=== PATIENT | male | born 1935 | race Caucasian/White ===

== ENCOUNTER → 2019-06-27 09:19 | Outpatient (CLI) | payer MEDICARE, SELFPAY ==
--- NOTE | 2019-06-27 09:33 | XR_ITS ---
PROCEDURE: XR LUMBAR SPINE MIN 4V CLINICAL INDICATION: LOW BACK PAIN COMPARISON: LS5 LUMBAR SPINE 5 VIEWS from 04/01/2013 FINDINGS: There is normal alignment. No fracture or dislocation is evident. Multilevel degenerative disc disease is present from T11-S1. This has shown some progression compared to the previous exam. There are endplate osteophytes at every level with decrease in the disc space and endplate sclerosis. Facet arthritic changes are present at L4-5 and L5-S1. Prostate seed implants are noted. No obvious lytic or blastic lesion. There is a small air sclerosis along the right SI joint superiorly unchanged. IMPRESSION: Moderate to severe multilevel degenerative disc disease which has progressed compared to the previous exam. Facet arthritic changes L4-5 and L5-S1 Dictated by: Alan Early MD 06/27/2019 10:20 Electronically signed by Alan Early MD in [facility] 06/27/2019 10:20
--- NOTE | 2019-06-27 09:33 | XR_ITS ---
PROCEDURE: XR HIP RT 2-3V W/PELVIS CLINICAL INDICATION: RT HIP PAIN COMPARISON: No exams were available for comparison FINDINGS: The there are mild osteoarthritic changes of the right hip. No fracture or dislocation. No lytic or blastic change. Prostate seed implants are noted. There is degenerative disc disease at L4-5 and L5-S1. Mild osteoarthritis is also present vomiting the left hip on the AP view of the pelvis. IMPRESSION: Osteoarthritis of the hips. Degenerative disc disease L4-5 and L5-S1 Dictated by: Alan Early MD 06/27/2019 11:18 Electronically signed by Alan Early MD in [facility] 06/27/2019 11:18
== END ==
PROVIDERS: PCP Internal Medicine Adolescent Medicine; Visit Provider Nurse Practitioner Family
DX: M25.551 Pain in right hip (principal); M54.5 Low back pain
CPT/HCPCS: 72110; 73502

== ENCOUNTER → 2021-09-24 09:44 | Outpatient (CLI) | payer MEDICARE, SELFPAY | PROVIDERS: PCP Internal Medicine Adolescent Medicine; Visit Provider Nurse Practitioner | DX: U07.1 COVID-19 (principal) | CPT/HCPCS: C9803; U0003; U0005 ==

== ENCOUNTER 2021-09-28 09:27 | Outpatient (CLI) | payer MEDICARE, SELFPAY ==
[2021-09-28] VITALS (9 sets, daily range): BP systolic 132–150; BP diastolic 71–97; PULSE 65–78; RESP 14–18; TEMP 36.6; O2SAT 94–98
== END 2021-09-28 12:58 | disposition home or self-care (01) ==
LOC: INF 09:30
PROVIDERS: PCP Nurse Practitioner Family; Visit Provider Nurse Practitioner Family
DX: U07.1 COVID-19 (principal); Z23 Encounter for immunization
CPT/HCPCS: 96365

== ENCOUNTER → 2021-10-04 13:15 | Outpatient (CLI) | payer MEDICARE, SELFPAY ==
--- NOTE | 2021-10-04 13:52 | XR_ITS ---
PROCEDURE: XR CHEST 2V CLINICAL HISTORY: COUGH COMPARISON: No exams were available for comparison FINDINGS: The cardiomediastinal silhouette and pulmonary vascularity are within normal limits. The lungs are clear without infiltrates, suspicious nodules, or pleural effusions. Degenerative changes thoracic spine. Severe osteoarthritic changes of the shoulders right greater than left. IMPRESSION: No acute findings. Dictated by: Alan Early MD 10/04/2021 16:22 Alan Early MD in [facility] 10/04/2021 16:22
[2021-10-04 14:01] LABS: Basophils # 0.1 K/mm3 (0-0.2); Basophils % 0.7 % (0.1-2.0); Eosinophils # 0.2 K/mm3 (0.0-0.4); Eosinophils % 2.7 % (0.1-12.0); Hematocrit 43.6 % (42.0-52.0); Hemoglobin 14.1 g/dL (14.1-18.0); Lymphocytes # 1.9 K/mm3 (0.7-4.5); Lymphocytes % 25.8 % (10-50); Mean Corpuscular HGB Conc 32.4 g/dL (31.8-35.4); Mean Corpuscular Hemoglobin 33.3 pg (27.0-31.2); Mean Platelet Volume 7.9 fl (7.4-10.4); Monocytes # 0.6 K/mm3 (0.1-1.0); Monocytes % 7.8 % (1.7-9.3); Neutrophils # 4.8 K/mm3 (1.8-7.8); Platelet Count 212 K/mm3 (142-424); Red Blood Count 4.23 M/mm3 (4.60-6.20); Red Cell Distribution Width 13.7 % (11.5-17.5); White Blood Count 7.5 K/mm3 (4.8-10.8)
[2021-10-04 15:09] LABS: Alanine Aminotransferase 48 U/L (12-78); Albumin Level 3.5 g/dl (3.5-5.0); Albumin/Globulin Ratio 1.2 (1.1-1.8); Alkaline Phosphatase 98 U/L (38-126); Anion Gap 10.3 mEq/L (5-15); Aspartate Amino Transferase 52 U/L (17-59); Bilirubin,Total 0.4 mg/dl (0.2-1.3); Blood Urea Nitrogen 23 mg/dl (9-20); Calcium 9.2 mg/dl (8.4-10.2); Carbon Dioxide 26 mmol/L (22.0-30.0); Chloride 106 mmol/L (98-107); Estimated Glomerular Filt Rate 80 ml/min (>60); GFR (African American) 97 ML/MIN (>60); Globulin 2.9 g/dL (1.3-3.2); Glucose 100 mg/dl (74-100); Potassium 4.3 mmoL/L (3.5-5.1); Sodium 138 mmol/L (136-145); Total Protein,Serum 6.4 g/dl (6.3-8.2)
== END ==
PROVIDERS: Visit Provider Nurse Practitioner Family
DX: R05.9 Cough, unspecified (principal)
CPT/HCPCS: 36415; 71046; 80053; 85025

== ENCOUNTER 2023-12-04 17:25 | Observation (INO) | payer MEDICARE, SELFPAY ==
[2023-12-04 17:26] VITALS: BP 150/98; PULSE 90; RESP 20; TEMP 36.7; O2SAT 95; BMI 27.3
--- NOTE | 2023-12-04 17:32 | ECG_ITS ---
APPROVED REPORT Exam: Resting ECG HR:88 bpm ECG Measurements Heart Rate 88 AXES DE 171 P 19 QRSd 152 QRS 68 QT 358 T -20 QTc 403 Conclusion SINUS RHYTHM POSSIBLE LEFT ATRIAL ENLARGEMENT [-0.1mV P-WAVE IN V1/V2] RIGHT BUNDLE BRANCH BLOCK [120+ ms QRS DURATION, UPRIGHT V1, 40+ ms S IN I/aVL/V4/V5/V6] ABNORMAL ECG UNCONFIRMED REPORT Electronically signed by : Aldo Delvalle MD 12/05/2023 21:54:50
[2023-12-04 17:43] VITALS: BMI 27.3
--- NOTE | 2023-12-04 17:43 | CT_ITS ---
PROCEDURE INFORMATION: Exam: CT Abdomen And Pelvis With Contrast Exam date and time: 12/04/2023 6:32 PM Age: 87 years old Clinical indication: Abdominal pain; Localized; Left lower quadrant (llq); Additional info: Luq/llq pain. History of prostate cancer TECHNIQUE: Imaging protocol: Computed tomography of the abdomen and pelvis with contrast. Radiation optimization: All CT scans at this facility use at least one of these dose optimization techniques: automated exposure control; mA and/or kV adjustment per patient size (includes targeted exams where dose is matched to clinical indication); or iterative reconstruction. Contrast material: ISOVUE; Contrast volume: 75 ml; Contrast route: IV; COMPARISON: ABDPELW/WO CT ABD PELVIS W/WO CONTRAST 07/06/2017 1:13 PM FINDINGS: Lungs: Mild bilateral lower lobe cylindrical bronchiectasis. Mild subpleural reticulation. Small inferior lingular calcified granuloma. Heart: Moderate aortic valvular calcifications. Minimal pericardial effusion. Coronary arteries: Heavy coronary artery calcifications. Diaphragm: Small hiatal hernia. Liver: Cirrhotic morphology. Gallbladder and bile ducts: Normal. No calcified stones. No ductal dilation. Pancreas: Normal. No ductal dilation. Spleen: No splenomegaly. Adrenal glands: Normal. No mass. Kidneys and ureters: Stable bilateral renal sinus cysts. No hydronephrosis. Stomach and bowel: Mild apparent wall thickening several loops of proximal small bowel and ascending colon. Several mildly dilated loops of distal small bowel containing air-fluid levels measuring up to 3.2 cm in caliber without abrupt transition point. Severe sigmoid colon diverticulosis. Appendix: No evidence of appendicitis. Intraperitoneal space: Gdna-rj-rtnprxpw volume ascites. No free air. Vasculature: Left gastric and esophageal/paraesophageal varices. Moderate to heavy atherosclerosis No abdominal aortic aneurysm. Lymph nodes: Small calcified left hilar and subcarinal lymph nodes. No enlarged lymph nodes. Urinary bladder: Unremarkable as visualized. Reproductive: Prostate brachytherapy seeds Bones/joints: Degenerative changes. No acute fracture. Soft tissues: Small bilateral fat containing inguinal hernias. Moderate lower back subcutaneous soft tissue swelling IMPRESSION: 1. Cirrhotic morphology of the liver. Secondary findings of portal hypertension to include left gastric and esophageal/paraesophageal varices. Feoi-pj-peawlqwn volume ascites. 2. 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 3. Several mildly dilated loops of small bowel containing air-fluid levels without evidence of mechanical obstruction, possibly related to ileus or enteritis.
--- NOTE | 2023-12-04 17:44 | ED_ITS ---
Discharge Plan Disposition Chief Complaint: Abdominal Pain Referrals Follow up/Referrals: Aldo Delvalle MD [Primary Care Provider] - See instructions Clinical Impressions Clinical Impression: Cirrhosis, Esophageal varices, Spontaneous bacterial peritonitis Discharge ED Provider: Jann Dykes General Adult HPI General Chief complaint: Abdominal Pain Stated complaint: chest pain Time Seen by Provider: 12/04/23 17:35 History of Present Illness HPI narrative: Patient is a 87-year-old male with past medical history of prostate cancer status postsurgical intervention, largely healthy otherwise who presents emerge ncy department from clinic for evaluation of abdominal pain. History is obtained by patient and family at bedside. Over the last week patient has had upper respiratory symptoms including cough and rhinorrhea which are improving, denies chest pain. He has had intermittent severe left upper quadrant left lower quadrant abdominal pain causing him to present here for continued evaluation. Last bowel movement prior to arrival, streaky blood with wiping however no overt melena or hematochezia is reported. Patient is pending outpatient echocardiography for bilateral lower extremity swelling. No other acute complaints at this time. Related Data Allergies Allergy/AdvReac Type Severity Reaction Status Date / Time No Known Drug Allergies Allergy Unknown Verified 09/28/21 11:02 [NO KNOWN DRUG ALLERGIES] [facility] Disclaimer: The information contained in this section may have been updated after the patient was seen, as this information can be updated by other users. Social History Smoking Status: Never smoker alcohol intake: never current occupational status: other Travel in the last 8 weeks: None ROS Obtained: Yes Systems reviewed as appropriate & no additional complaints except as documented Physical Exam General General appearance: alert and in no apparent distress Head Head exam: atraumatic and normocephalic Eye Eye exam: Present PERRL ENT ENT exam: Present mucous membranes moist Neck Neck exam: Present normal inspection Chest Chest inspection: Present normal inspection and symmetric chest wall rise Respiratory Respiratory exam: Present normal lung sounds bilaterally; Absent respiratory distress Cardiovascular Cardiovascular exam: Present regular rate and normal rhythm Abdominal Exam Abdominal exam: Present distention (Mild) and tenderness (Tenderness over the left upper quadrant left lower quadrant.); Absent rebound or rigidity Extremities Exam Extremities exam: Present normal inspection and other (Pitting edema bilateral lower extremities.) Neurological Exam Neurological exam: Present alert Psychiatric Psychiatric exam: Present normal affect Skin Skin exam: Present warm and dry Medical Decision Making George Inquiry Pt receiving controlled substance: No Vital Signs: 12/04/23 17:26 12/04/23 18:00 Temperature 98.1 F Temperature Source Oral Pulse Rate 92 H Pulse Rate [Left] 90 Respiratory Rate 20 18 Blood Pressure 153/92 H Blood Pressure [Right Arm] 150/98 H Blood Pressure Mean 112 Blood Pressure Mean [Right Arm] 115 Blood Pressure Source [Right Arm] Automatic Cuff 02 Sat by Pulse Oximetry 95 96 Oxygen Delivery Method Room Air Lab Data Lab Results 12/04/23 17:30: WBC 7.3, RBC 3.78 L, Hgb 13.2 L, Hct 39.0 L, MCV 103.2 H, MCH 35.0 H, MCHC 33.9, RDW 14.3, Plt Count 181, MPV 8.6, Neut % (Auto) 71.4, Lymph % (Auto) 18.9, [place] % (Auto) 7.3, Eos % (Auto) 2.1, Baso % (Auto) 0.3, Neut # (Auto) 5.2, Lymph # (Auto) 1.4, [place] # (Auto) 0.5, Eos # (Auto) 0.2, Baso # ( Auto) 0.0, Sodium 139, Potassium 3.9, Chloride 107, Carbon Dioxide 26, Anion Gap 9.9, BUN 24 H, Creatinine 0.90, Estimated Creat Clear 61, Estimated GFR 80, Est GFR ( Amer) 96, Glucose 107 H, Calcium 8.5, Total Bilirubin 1.2, AST 79 H , ALT 56, Alkaline Phosphatase 174 H, Troponin I < 0.01, Total Protein 6.4, Albumin 3.2 L, Globulin 3.2, Albumin/Globulin Ratio 1.0 L, Lipase 134 12/04/23 18:24: SARS-CoV-2 (PCR) Detected A, Influenza A Untype (PCR) Not detected, Influenza Type B (PCR) Not detected 12/04/23 19:28: Fluid Source Paracentesis fluid, Fluid Volume 40, Fluid Appearance Cloudy, Fluid RBC (Auto) < 10, Fld Tot Nucleated Cell 390 12/04/23 17:30 12/04/23 17:30 Orders (Tests/Meds): ED MEDICATIONS Generic Name Dose Route Start Last Admin Trade Name Freq PRN Reason Stop Dose Admin Ceftriaxone Sodium 2 gm/ 100 mls @ 200 mls/hr 12/04/23 20:00 12/04/23 19:51 Sodium Chloride IV 12/14/23 19:59 200 mls/hr Q24H PATIENCE Administration Sodium Chloride 10 ml 12/04/23 18:33 12/04/23 18:35 Sodium Chloride 0.9% 10ml Syr (Rad Only) IV 01/03/24 18:32 10 ml NEEDED PRN Administration Maintain IV Site Discontinued Medications Generic Name Dose Route Start Last Admin Trade Name Danis PRN Reason Stop Dose Admin Acetaminophen 1,000 mg 12/04/23 17:43 12/04/23 17:58 Acetaminophen 1,000mg/100ml Vial IV 12/04/23 17:44 1,000 mg ONCE ONE Administration Iopamidol 75 ml 12/04/23 18:33 12/04/23 18:35 Iopamidol-370 (76%);100ml Bottle IV 12/04/23 18:34 75 ml ONCE ONE Administration ORDERS Category Date Time Status CT abdomen pelvis w con Stat Cat Scan 12/04/23 17:43 Completed POCUS Point of Care (ER Only) Stat Exams 12/04/23 17:44 Taken Body Fluid: Cell Count w/ Diff Stat Lab 12/04/23 19:28 Results CBC w/Auto Diff [Complete Blood Count Auto Diff] Stat Lab 12/04/23 17:30 Completed CMP [Comprehensive Metabolic Panel] Stat Lab 12/04/23 17:30 Completed Lactic Acid Stat Lab 12/04/23 17:43 Ordered Lipase Stat Lab 12/04/23 17:30 Completed Rapid PCR Covid and Flu A/B Stat Lab 12/04/23 18:24 Completed Trop I [Troponin I] Stat Lab 12/04/23 17:30 Completed UA [Urinalysis and Microscopic] Stat Lab 12/04/23 18:24 Ordered Body Fluid Cult & Gram Stain Stat Micro 12/04/23 19:28 Received Body Fluid Culture, Sterile Stat Micro 12/04/23 19:28 Received ECG Data Tracing #1: Independently interpreted by me, rate is 88, rhythm is regular, axis is normal, right bundle branch block, no significant ST elevation in anatomical contiguous leads. HEART Score History (anamnesis): Slightly suspicious ECG: Non-specific disturbance Age: >65 years Risk factors: No known risk factors Troponin: </= normal limit HEART Score: 3 Medical Decision Narrative: In summary patient is 87-year-old male past medical history described above presents emergency department for evaluation of abdominal pain. Patient is hemodynamically stable nontoxic-appearing upon arrival, afebrile, significantly tender in the left upper quadrant. Differential diagnosis includes diverticulitis, mass, pancreatitis, atypical ACS, among others. Workup will be conducted with hematologic labs, urinalysis, EKG, troponin, CT abdomen pelvis IV contrast. Initial inventions include IV Tylenol. Crystalloid resuscitation was considered but will be deferred given that patient is volume up extra vascularly and has appropriate capillary refill. Initial workup reviewed by me, hematologic labs are nonactionable, no specific leukocytosis, no MARY or critical electrolyte abnormality. Initial troponin below detectable limit, there is mild elevation of AST which is nonactionable. Patient is COVID-positive, no significant respiratory symptoms. CT abdomen pelvis shows cirrhosis of the liver, portal hypertension with esophageal varices and moderate volume ascites, thickening of several loops of proximal small bowel and ascending colon likely relative to portal hypertensive Enterocolopathy with several mildly dilated loops of small bowel containing air-fluid levels without evidence of obstruction. Upon further questioning with family at bedside patient has had abdominal swelling over the last week which may be new onset ascites in the setting of worsening portal hypertension. Given that patient is tender spontaneous bacterial peritonitis is on the differential for which patient underwent diagnostic paracentesis. Nucleated cell count 390 concerning for spontaneous bacterial peritonitis. Given high morbidity mortality associated with this condition and patient management is warranted at this time. Patient does not have decompensated cirrhosis to the point where emergent gastroenterology evaluation is warranted. 2 g ceftriaxone were administered and the case was discussed with hospital medicine regarding management patient will be admitted to their service for continued evaluation at this time. Procedure: Procedure performed was diagnostic paracentesis. Procedure performed by Jann Dykes. Using ultrasound a fluid pocket greater than 5 cm was identified in the patient's right lower quadrant, anatomy was marked (images were not saved to permanent archive therefore ultrasound is not warranted). Skin was cleaned with alcohol prep and patient underwent numbing with lidocaine 1% approximately 7 cc. ChloraPrep was applied and 2 aliquots of straw-colored ascitic fluid were removed, total approximately 30 cc which will placed in the specimen container. Band-Aid applied. Patient tolerated the procedure well. There were no immediate complications. Procedures Miscellaneous Procedure Procedure Performed: Indication: Swelling Identified cardiac views: Cardiac parasternal long axis, apical four-chamber Findings: Cardiac activity present, gross wall and wall motion normal, no significantly decreased ejection fraction, normal EPSS, no large pericardial effusion Impression: From above Images were to permanent archive The study was technically adequate CPT: 85801 This study was performed by me, and I personally interpreted all images/videos. Based on my clinical judgement, these images were [adequate/inadequate] and [did/did not] necessitate further imaging. Critical Care Critical Care Time Critical Care Time: No
[2023-12-04] MEDS: ACETAMINOPHEN 1,000MG/100ML VIAL 1000 MG IV (17:58)
[2023-12-04 18:00] VITALS: BP 153/92; PULSE 92; RESP 18; O2SAT 96
[2023-12-04 18:11] LABS: Basophils % 0.3 % (0.1-2.0); Eosinophils # 0.2 K/mm3 (0.0-0.4); Eosinophils % 2.1 % (0.1-12.0); Hemoglobin 13.2 g/dL (14.1-18.0); Lymphocytes # 1.4 K/mm3 (0.7-4.5); Lymphocytes % 18.9 % (10-50); Mean Corpuscular HGB Conc 33.9 g/dL (31.8-35.4); Mean Corpuscular Volume 103.2 fl (80-94); Mean Platelet Volume 8.6 fl (7.4-10.4); Monocytes # 0.5 K/mm3 (0.1-1.0); Monocytes % 7.3 % (1.7-9.3); Neutrophils # 5.2 K/mm3 (1.8-7.8); Neutrophils % 71.4 % (37.0-80.0); Platelet Count 181 K/mm3 (142-424); Red Blood Count 3.78 M/mm3 (4.60-6.20); Red Cell Distribution Width 14.3 % (11.5-17.5); White Blood Count 7.3 K/mm3 (4.8-10.8)
[2023-12-04 18:21] LABS: Alanine Aminotransferase 56 U/L (12-78); Albumin Level 3.2 g/dl (3.5-5.0); Alkaline Phosphatase 174 U/L (38-126); Anion Gap 9.9 mEq/L (5-15); Aspartate Amino Transferase 79 U/L (17-59); Bilirubin,Total 1.2 mg/dl (0.2-1.3); Blood Urea Nitrogen 24 mg/dl (9-20); Calcium 8.5 mg/dl (8.4-10.2); Carbon Dioxide 26 mmol/L (22.0-30.0); Chloride 107 mmol/L (98-107); Creatinine Clearance Estimated 61 mL/min (50-200); Estimated Glomerular Filt Rate 80 ml/min (>60); GFR (African American) 96 ML/MIN (>60); Globulin 3.2 g/dL (1.3-3.2); Glucose 107 mg/dl (74-100); Lipase 134 U/L (23-300); Potassium 3.9 mmoL/L (3.5-5.1); Sodium 139 mmol/L (136-145); Total Protein,Serum 6.4 g/dl (6.3-8.2)
[2023-12-04 18:31] LABS: Influenza A, PCR Not Detected (NotDetected); Influenza B, PCR Not Detected (NotDetected)
[2023-12-04 18:34] LABS: Troponin I < 0.01 ng/ml (0.00-0.034)
[2023-12-04] MEDS: SODIUM CHLORIDE 0.9% 10ML SYR (RAD ONLY) 10 ML IV (18:35)
[2023-12-04] MEDS: IOPAMIDOL-370 (76%);100ML BOTTLE 75 ML IV (18:35)
[2023-12-04 19:11] LABS: Coronavirus 19, PCR Detected (NotDetected)
[2023-12-04 19:34] LABS: Source, Body Fld. Paracentesis Fluid
[2023-12-04 19:35] LABS: Appearance,Body Fld. Cloudy
[2023-12-04 19:38] LABS: Volume,Body Fld. 40 mL
[2023-12-04 19:43] LABS: RBC,Body Fluid < 10 cells/uL (< 10 X 10^3); TNC,Body Fluid 390 cells/uL (< 1000)
[2023-12-04] MEDS: CEFTRIAXONE SODIUM 2 GM in 0.9 % SODIUM CHLORIDE 100 ML IV (19:51)
[2023-12-04 19:59] LABS: Microscopic, Urine URINE MICROSCOPIC (MICROSCOPIC)
--- NOTE | 2023-12-04 19:59 | P.HP_ITS ---
History of Present Illness *Admission Date: 12/04/23 *Reason for visit:: Abd pain *History of present illness: This is a 87-year-old male with PMHx of prostate cancer status postsurgical intervention, OA and largely healthy otherwise who presents emergency department from clinic for evaluation of abdominal pain. History is obtained by patient and daughter at bedside. Over the last week patient has had upper respiratory symptoms including cough and rhinorrhea which are improving, denies chest pain. He also has had intermittent severe left upper quadrant left lower quadrant abdominal pain causing him to present here for continued evaluation. Per patient, he is been feeling abdominal distention at least from about the last six months. He blamed on been hypoactive and thought it was getting obese, my pants are no longer fit me . Last bowel movement prior to arrival, streaky bl ood with wiping however no overt melena or hematochezia is reported. Patient is pending outpatient echocardiography for bilateral lower extremity swelling. No other acute complaints at this time. Admitted for management and treatment. [facility] Disclaimer: The information contained in this section may have been updated after the patient was seen, as this information can be updated by other users. Medical History (Updated 12/05/23 @ 02:34 by Patrick Stovall APRN) Degenerative arthritis Prostate cancer Social History (Updated 12/04/23 @ 22:01 by Linda Martin RN) Smoking Status: Never smoker alcohol intake: never current occupational status: other Travel in the last 8 weeks: None Review of Systems Review of Systems Review of systems:: pertinent systems reviewed and negative unless documented below Meds Home Medications and Allergies Home Medications Medication Instructions Recorded Confirmed Type aspirin 325 mg tablet 325 mg PO DAILY PRN Pain (Scale 12/04/23 12/04/23 History Score 1-3) diclofenac sodium 75 mg 75 mg PO BID PRN arthritis pain 12/04/23 12/04/23 History tablet,delayed release famotidine 20 mg tablet 20 mg PO DAILY PRN indegestion 12/04/23 12/04/23 History New Prescriptions to Start Prescriptions: Allergies Allergy/AdvReac Type Severity Reaction Status Date / Time No Known Drug Allergies Allergy Unknown Verified 09/28/21 11:02 [NO KNOWN DRUG ALLERGIES] Exam Data for Last 24 hours Vital signs and Labs for Last 24 Hours: Temp Pulse Resp BP Pulse Ox O2 Del Method 98.1 F 92 H 18 153/92 H 96 Room Air 12/04/23 17:26 12/04/23 18:00 12/04/23 18:00 12/04/23 18:00 12/04/23 18:00 12/04/23 17:26 Laboratory Results - last 24 hr 12/04/23 17:30: WBC 7.3, RBC 3.78 L, Hgb 13.2 L, Hct 39.0 L, MCV 103.2 H, MCH 35.0 H, MCHC 33.9, RDW 14.3, Plt Count 181, MPV 8.6, Neut % (Auto) 71.4, Lymph % (Auto) 18.9, [place] % (Auto) 7.3, Eos % (Auto) 2.1, Baso % (Auto) 0.3, Neut # (Auto) 5.2, Lymph # (Auto) 1.4, [place] # (Auto) 0.5, Eos # (Auto) 0.2, Baso # (Auto) 0.0, Sodium 139, Potassium 3.9, Chloride 107, Carbon Dioxide 26, Anion Gap 9.9, BUN 24 H, Creatinine 0.90, Estimated Creat Clear 61, Estimated GFR 80, Est GFR ( Amer) 96, Glucose 107 H, Calcium 8.5, Total Bilirubin 1.2, AST 79 H, ALT 56, Alkaline Phosphatase 174 H, Troponin I < 0.01, Total Protein 6.4, Albumin 3.2 L, Globulin 3.2, Albumin/Globulin Ratio 1.0 L, Lipase 134 12/04/23 18:24: SARS-CoV-2 (PCR) Detected A, Influenza A Untype (PCR) Not detected, Influenza Type B (PCR) Not detected 12/04/23 19:28: Fluid Source Paracentesis fluid, Fluid Volume 40, Fluid Appearance Cloudy, Fluid RBC (Auto) < 10, Fld Tot Nucleated Cell 390 I & O for Last 24 hours: Intake & Output 12/01/23 12/02/23 12/03/23 12/04/23 23:59 23:59 23:59 23:59 Weight 83.915 kg Constitutional Constitutional: mild distress and cooperative *Routine HEENT Exam Head: Present normocephalic and atraumatic Eye: Present EOMI, PERRL and normal accommodation ENT: Present mucous membranes moist *Routine Neck Exam Neck: Present supple, full ROM and trachea midline *Routine Respiratory Exam Respiratory: Present CTA bilaterally, normal respiratory effort and symmetric chest movement; Absent respiratory distress *Routine Cardiovascular Exam Cardiovascular: Present RRR, Normal S1 and Normal S2 *Routine Abdominal Exam Abdominal: Present normoactive bowel sounds, distended, firm and organomegaly *Routine Rectal Exam Rectal:: deferred *Routine Genitalia Exam Genitalia:: deferred *Routine Extremities Exam Extremities: Present edema, full ROM and pulses intact; Absent cyanosis or clubbing Comments: 2+ bilateral lower pitting edema. greater on right side *Routine Skin Exam Skin: Present intact, dry and warm *Routine Neurological Exam Neurological: Present alert, oriented X3, sensory deficit, moving all extremities and normal speech; Absent hearing grossly intact Comments: bilateral [place] Routine Psychiatric Exam Psychiatric: Present normal thought process, cooperative and good judgment H&P: Result Imaging and Cardiology CT scan - abdomen: Status: image reviewed by me, Preliminary report and final report EKG: Status: image reviewed by me and Preliminary report Assessment and Plan *Assessment and plan (1) Cirrhosis: Status: Acute Qualifiers: Ascites presence: with ascites Hepatic cirrhosis type: unspecified hepatic cirrhosis Qualified Code(s): K74.60 - Unspecified cirrhosis of liver; R18.8 - Other ascites Category: Medical Code(s): K74.60 - Unspecified cirrhosis of liver (2) Spontaneous bacterial peritonitis: Status: Acute Category: Medical Code(s): K65.2 - Spontaneous bacterial peritonitis (3) Esophageal varices: Status: Acute Qualifiers: Esophageal varices bleeding: without bleeding Esophageal varices type: unspecified type Qualified Code(s): I85.00 - Esophageal varices without bleeding Category: Medical Code(s): I85.00 - Esophageal varices without bleeding (4) COVID-19: Status: Acute Category: Medical Code(s): U07.1 - COVID-19 Plan 87-year-old male with PMHx of prostate cancer status postsurgical intervention, OA and largely healthy otherwise who presents emergency department from clinic for evaluation of abdominal pain. He also has had intermittent severe left upper quadrant left lower quadrant abdominal pain causing him to present here for continued evaluation. Per patient, he is been feeling abdominal distention at least from about the last six months. He blamed on been hypoactive and thought it was getting obese, my pants are no longer fit me .. On arrival patient had a CT of his abdomen conclusis for cirrhotic changes of the liver portal hypertention pre and post hepatic, esophageal varices. and moderate volume ascites, thickening of several loops of proximal small bowel and ascending colon likely relative to portal hypertensive Enterocolopathy with several mildly dilated loops of small bowel containing air-fluid levels without evidence of obstruction.Patient denied history of alcoholism or any other drugs, denied history of hepatitis. LAbs are grossly unremarkable. mild anemia. Given patient symptoms, spontaneous bacterial peritonitis is on the differential for which patient underwent diagnostic paracentesis. Nucleated cell count 390 concerning for spontaneous bacterial peritonitis. Findings discussed with ER provider for admission. Plan as follow: -Cirrhosis: Unclear etiology. Patient denies history of alcoholism, hepatitis, or chronic use of medications like methotrexate for OA: Admit patient for medical services. Patient MedSurg Diagnosis paracentesis was performed at the ER. Culture pending CT of the abdomen was done. Imaging reviewed. Ultrasound of the liver ordered. Echocardiogram to assess right heart failure. Hepatitis B and C antigen Monitor for sepsis. Vital signs per unit. Patient hemodynamically stable -Spontaneous bacterial peritonitis: Paracentesis shows elevated neutrophils. Started on Rocephin 2 g every 24h Awaiting culture results Monitor CBC CMP daily. 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 Continue monitor -COVID-19 positive Asymptomatic Lovenox for DVT prophylaxis. Protonix and famotidine for GERD and GI bleed protection Patient would like to be DNR. Plan discussed with daughter at bedside. Family are leaning to not pursue aggressive or invasive procedure. And advised to follow-up with GI as an outpatient after medically stable. Rounded on patient after nurse practitioner. Personally examined and interviewed patient. Agree with exam findings and care plan as documented.
[2023-12-04 20:03] LABS: Appearance,Urine CLEAR (Clear); Bilirubin,Urine Negative (Negative); Blood, Urine Negative (Negative); Color,Urine YELLOW (Yellow); Glucose,Urine (UA) Negative (Negative); Ketones,Urine TRACE (Negative); Leukocyte Esterase,Urine Negative (Negative); Nitrate,Urine Negative (Negative); Protein,Urine Negative (Negative); Specific Gravity, Urine 1.025 (1.005-1.030)
--- NOTE | 2023-12-04 20:21 | PC.NURSE ---
Admitting notified for OBS admission to Dr. Dash for SBP. Room 205
[2023-12-04 20:24] LABS: WBC,Urine Occasional #/hpf (0-3)
[2023-12-04 20:25] LABS: Squamous Epithelial Cell,Urine Occasional #/hpf (0-5)
[2023-12-04 20:28] LABS: Mononuclear WBCs,Body Fluid 90 %; Polynuclear WBC,Body Fluid 10 %
--- NOTE | 2023-12-04 20:34 | PC.NURSE ---
Attempted to give report to second floor, RN to call back to receive report.
--- NOTE | 2023-12-04 20:46 | PC.NURSE ---
Report given to SIRIA Mckeon on second floor.
[2023-12-04 20:53] VITALS: BP 150/81; PULSE 69; RESP 20; TEMP 36.7; O2SAT 95
[2023-12-04 21:00] VITALS: BP 150/68; PULSE 83; RESP 16; TEMP 36.8; O2SAT 97; BMI 27.1
[2023-12-04] MEDS: 0.9 % SODIUM CHLORIDE 1000ML 1,000 ML 50 ML IV (21:19)
[2023-12-04] MEDS: ENOXAPARIN 40MG/0.4ML SYRINGE 40 MG SQ (21:19)
[2023-12-04 23:12] LABS: Lactic Acid 1.1 mmol/L (0.7-2.1)
[2023-12-05] VITALS (17 sets, daily range): BP systolic 117–159; BP diastolic 63–93; PULSE 71–84; RESP 16–19; TEMP 36.6–37.7; O2SAT 94–98; BMI 27.1
--- NOTE | 2023-12-05 04:50 | PC.NURSE ---
Pt and family state he started feeling bad last Monday with malaise, headache, body ache, congestion. Pt then started complaining of abdominal pain on Monday and it has progressively got worse. Pt went to MD office today and was told to come to ER. Pt received thorocentesis in ER, fluid sent for cx. Pt abdomen remains very distended and round. Pt states he is not in any pain. Pt has continued to tolerate RA with sats >90% Other VSS. Pt does have 2 + edema to BLE. Pt able to use urinal independently and ambulates with 1x assist. Daughter is at bedside. Call light within reach.
--- NOTE | 2023-12-05 06:00 | US_ITS ---
FINAL REPORT CLINICAL HISTORY: Ascitis. COMPARISON: None FINDINGS: ULTRASOUND ABDOMEN: A limited ultrasound examination of the abdomen was performed to evaluate presence of ascites. There is ascites present in all 4 quadrants of the abdomen, with the greatest amount of ascites present in the right upper quadrant. IMPRESSION: Ascites present in all 4 quadrants of the abdomen, with greatest amount present in the right upper quadrant. Reviewed, Interpreted and Dictated by Tera Juan III, MD Transcribed by Marcela Shaikh Authenticated and [facility]
--- NOTE | 2023-12-05 06:04 | CA_ITS ---
APPROVED REPORT EXAM: Comprehensive 2D, Doppler, and color-flow Echocardiogram Vp Public Relations: OSBALDO Guevara, RVS Ht: 5 ft 8 in Wt: 189lbs BSA: 1.99 BP: 153/92 mmHg Indications: Pedal Edema, Cirrhosis with ascites, Covid+, Spontaneous bacterial peritonitis, Hgb13.2 2D Dimensions Left Atrium 3.96 cm M: 3.0 - 4.0 LA Volume 65.40 mL LA Volume Index [id number] mL/m2 (M/F) 16-34 M-Mode Dimensions RVDd 1.82 cm (0.9-2.6) LA Diam 4.20 cm (1.9-4.0) LVDd 5.78 cm (3.5-5.7) LVDs 3.50 cm (3.5-5.7) IVSd 0.82 cm (0.6-1.1) PWd 1.00 cm (0.6-1.1) EF (Teich) 69.20% EPSs 0.25 cm FS 39.40% EDV (Teich) 165.20 mL TAPSE 1.70 (<1.7) ESV (Teich) 50.90 mL LV Diastology E Decel Time 133 (160-240 msec) E/A Ratio 0.91 MED A' 9.90 cm/s LAT A' 10.80 cm/s Aortic Valve GEOFF Index 0.70 cm2/m2 AoV Peak Hussein. 196.0 (50-130 cm/s) AO Peak GR. 15.30 mmHg AO Mean GR. 7.30 (<5 mmHg) AO VTI 36.4 (18-25 cm) GEOFF (VTI) 1.42 (2.5-4.5 cm2) Mitral Valve MV A Velocity 77.0 (40-130 cm/s) E/A Ratio 0.91 MV Mean Gr. 1.10 (<2mmHg) Pulmonary Valve PV Peak Velocity 106.0 (50-150 cm/s) NM End VMAX 181.0 cm/s Tricuspid Valve TR P. Velocity 198.00 cm/s RAP Estimate 10.00 mmHg RVSP 25.70 mmHg Left Ventricle The left ventricle is normal size. The left ventricular systolic function is normal. The left ventricular ejection fraction is within the normal range. There is increased LV wall thickness. There is normal LV segmental wall motion. The left ventricular diastolic function is normal. LVEF is 55%. Right Ventricle The right ventricle is normal size. The right ventricular systolic function is normal. Atria The left atrium size is normal. The right atrium size is normal. The interatrial septum is not well-visualized. Aortic Valve The aortic valve is mildly thickened. The aortic valve is trileaflet. There is no aortic valvular stenosis. Trace aortic regurgitation. Mitral Valve The mitral valve leaflets are mildly thickened. No evidence of mitral valve stenosis. Trace mitral regurgitation. Tricuspid Valve The tricuspid valve leaflets are thin and pliable. Mild tricuspid regurgitation. RVSP is 25-30 mmHg. Pulmonic Valve The pulmonary valve is normal in structure. Mild pulmonic regurgitation. Great Vessels The aortic root is normal in size. The ascending aorta is normal in size. The IVC is not well-visualized. Pericardium There is no pericardial effusion. Other Information Study Quality: Fair Conclusion Normal biventricular systolic function. Mild TR, mild PI. Electronically signed by : Aurelia Jean-Baptiste MD 12/06/2023 12:03:12
[2023-12-05 06:49] LABS: Basophils % 0.2 % (0.1-2.0); Eosinophils # 0.1 K/mm3 (0.0-0.4); Eosinophils % 1.2 % (0.1-12.0); Hemoglobin 12.4 g/dL (14.1-18.0); Lymphocytes # 1.2 K/mm3 (0.7-4.5); Lymphocytes % 15.2 % (10-50); Mean Corpuscular HGB Conc 33.6 g/dL (31.8-35.4); Mean Corpuscular Hemoglobin 34.5 pg (27.0-31.2); Mean Corpuscular Volume 102.7 fl (80-94); Mean Platelet Volume 9.4 fl (7.4-10.4); Monocytes # 0.5 K/mm3 (0.1-1.0); Monocytes % 6.3 % (1.7-9.3); Neutrophils # 6.2 K/mm3 (1.8-7.8); Neutrophils % 77.1 % (37.0-80.0); Platelet Count 167 K/mm3 (142-424); Red Cell Distribution Width 14.4 % (11.5-17.5)
[2023-12-05 06:59] LABS: Chloride 112 mmol/L (98-107); Potassium 4.1 mmoL/L (3.5-5.1); Sodium 135 mmol/L (136-145)
[2023-12-05 07:02] LABS: Alanine Aminotransferase 48 U/L (12-78); Albumin Level 2.7 g/dl (3.5-5.0); Albumin/Globulin Ratio 0.9 (1.1-1.8); Alkaline Phosphatase 156 U/L (38-126); Anion Gap 6.1 mEq/L (5-15); Aspartate Amino Transferase 73 U/L (17-59); Bilirubin,Total 1.1 mg/dl (0.2-1.3); Blood Urea Nitrogen 22 mg/dl (9-20); Calcium 7.8 mg/dl (8.4-10.2); Carbon Dioxide 21 mmol/L (22.0-30.0); Creatinine Clearance Estimated 60 mL/min (50-200); Estimated Glomerular Filt Rate 91 ml/min (>60); GFR (African American) 110 ML/MIN (>60); Glucose 95 mg/dl (74-100); Total Protein,Serum 5.7 g/dl (6.3-8.2)
[2023-12-05 07:15] LABS: INR 1.15 (0.9-1.1); Prothrombin Time 12.3 seconds (10.1-12.5)
--- NOTE | 2023-12-05 07:28 | HMH.PHAINT1 ---
Pharmacy Intervention Comments: Reviewed medication list comparing to external fill history
[2023-12-05 07:46] LABS: NT Pro Brain Natriuretic Pep. 72.2 pg/mL (0-450)
[2023-12-05] MEDS: PANTOPRAZOLE 40MG TABLET 40 MG PO (09:39)
--- NOTE | 2023-12-05 11:37 | EXP.ACUTE.PN ---
Subjective *Date: 12/05/23 *Time: 21:58 Interval history: Patient remained afebrile. Having abdominal pain and distention still. No nausea or vomiting. No fever. Most comfortable laying on his back but no discomfort when the bed shakes. Complaining of some left lower abdominal pain. Poor p.o. intake as he is just not hungry. Alert and oriented x 3 but hard of hearing. Medical Exam Vital signs and Labs for Last 24 Hours: Vital Signs Temp Pulse Pulse Resp BP BP Pulse Ox 12/05/23 11:31 12/05/23 11:13 98.9 F 77 18 152/79 H 96 12/05/23 09:30 12/05/23 08:02 12/05/23 08:00 97.9 F 84 19 128/91 H 96 12/05/23 06:55 12/05/23 04:00 97.8 F 77 18 145/71 H 96 12/05/23 04:44 12/05/23 02:54 12/05/23 01:00 12/05/23 00:00 99.8 F H 74 18 141/79 H 94 L 12/04/23 22:47 12/04/23 22:17 12/04/23 21:00 12/04/23 21:00 98.3 F 83 16 150/68 H 97 12/04/23 20:53 98.0 F 69 20 150/81 H 12/04/23 18:00 92 H 18 153/92 H 96 12/04/23 17:26 98.1 F 90 20 150/98 H 95 O2 Del Method 12/05/23 11:31 Room Air 12/05/23 11:13 Room Air 12/05/23 09:30 Room Air 12/05/23 08:02 Room Air 12/05/23 08:00 Room Air 12/05/23 06:55 Room Air 12/05/23 04:00 Room Air 12/05/23 04:44 Room Air 12/05/23 02:54 Room Air 12/05/23 01:00 Room Air 12/05/23 00:00 Room Air 12/04/23 22:47 Room Air 12/04/23 22:17 Room Air 12/04/23 21:00 Room Air 12/04/23 21:00 Room Air 12/04/23 20:53 Room Air 12/04/23 18:00 12/04/23 17:26 Room Air Intake and Output 12/04/23 12/05/23 12/05/23 23:59 07:59 15:59 Intake Total 356 / 356 0 / 356 Output Total 250 / 450 200 / 450 Balance 106 / -94 -200 / -94 Intake: Intake, Oral Amount 0 / 0 Intake, Total IV Amount 356 / 356 0.9 % Sodium Chloride 1000ML 1, 356 / 356 000 ml @ 50 mls/hr IV .Q20H [facility] Rx#:[id number] Output: Output, Urine Amount 250 / 450 200 / 450 Other: Number of Unmeasured Voids 0 Weight 83.325 kg 83.325 kg Patient Weight 12/05/23 23:59 Weight 83.325 kg Laboratory Results - last 24 hr 12/04/23 17:30: WBC 7.3, RBC 3.78 L, Hgb 13.2 L, Hct 39.0 L, MCV 103.2 H, MCH 35.0 H, MCHC 33.9, RDW 14.3, Plt Count 181, MPV 8.6, Neut % (Auto) 71.4, Lymph % (Auto) 18.9, [place] % (Auto) 7.3, Eos % (Auto) 2.1, Baso % (Auto) 0.3, Neut # (Auto) 5.2, Lymph # (Auto) 1.4, [place] # (Auto) 0.5, Eos # (Auto) 0.2, Baso # (Auto) 0.0, Sodium 139, Potassium 3.9, Chloride 107, Carbon Dioxide 26, Anion Gap 9.9, BUN 24 H, Creatinine 0.90, Estimated Creat Clear 61, Estimated GFR 80, Est GFR ( Amer) 96, Glucose 107 H, Calcium 8.5, Total Bilirubin 1.2, AST 79 H, ALT 56, Alkaline Phosphatase 174 H, Troponin I < 0.01, Total Protein 6.4, Albumin 3.2 L, Globulin 3.2, Albumin/Globulin Ratio 1.0 L, Lipase 134 12/04/23 18:24: SARS-CoV-2 (PCR) Detected A, Influenza A Untype (PCR) Not detected, Influenza Type B (PCR) Not detected 12/04/23 19:28: Fluid Source Paracentesis fluid, Fluid Volume 40, Fluid Appearance Cloudy, Fluid RBC (Auto) < 10, Fld Tot Nucleated Cell 390, Fld Polynuclear WBCs % 10, Fld Mononuclear WBCs % 90 12/04/23 19:55: Urine Color Yellow, Urine Appearance Clear, Urine pH 6.0, Ur Specific [place] 1.025, Urine Protein Negative, Urine Glucose (UA) Negative, Urine Ketones Trace, Urine Blood Negative, Urine Nitrate Negative, Urine Bilirubin Negative, Urine Urobilinogen 1.0, Ur Leukocyte Esterase Negative, Urine RBC None, Urine WBC Occasional, Ur Squamous Epith Cells Occasional, Urine Bacteria None 12/04/23 22:48: Lactate 1.1 12/05/23 05:53: WBC 8.0, RBC 3.60 L, Hgb 12.4 L, Hct 37.0 L, MCV 102.7 H, MCH 34.5 H, MCHC 33.6, RDW 14.4, Plt Count 167, MPV 9.4, Neut % (Auto) 77.1, Lymph % (Auto) 15.2, [place] % (Auto) 6.3, Eos % (Auto) 1.2, Baso % (Auto) 0.2, Neut # (Auto) 6.2, Lymph # (Auto) 1.2, [place] # (Auto) 0.5, Eos # (Auto) 0.1, Baso # (Auto) 0.0, Sodium 135 L, Potassium 4.1, Chloride 112 H, Carbon Dioxide 21 L, Anion Gap 6.1, BUN 22 H, Creatinine 0.80, Estimated Creat Clear 60, Estimated GFR 91, Est GFR ( Amer) 110, Glucose 95, Calcium 7.8 L, Magnesium 2.0, Total Bilirubin 1.1, AST 73 H, ALT 48, Alkaline Phosphatase 156 H, Total Protein 5.7 L, Albumin 2.7 L D, Globulin 3.0, Albumin/Globulin Ratio 0.9 L 12/05/23 06:30: PT 12.3, INR 1.15 H, NT-Pro-B Natriuret Pep 72.2 I & O for Labs for Last 24 Hours: Intake & Output 12/02/23 12/03/23 12/04/23 12/05/23 23:59 23:59 23:59 23:59 Intake Total 356 / 356 Output Total 450 / 450 Balance -94 / -94 Weight 83.325 kg 83.325 kg Constitutional: Present no acute distress, average body habitus and cooperative Head: Present atraumatic and normocephalic ENT: Present normal exam Neck: Present normal inspection Respiratory: Present normal respiratory effort; Absent rhonchi, wheezes or crackles Cardiac: Present Reg Rate and Rhythm GI: Present distention, tenderness and normal bowel sounds; Absent guarding or rebound Comments:: Negative for peritoneal signs. Extremities: Present normal inspection and full ROM; Absent edema Skin: Present intact; Absent erythema Neuro: Present Grossly Intact, alert, awake, oriented x 3 and moves all extremities Comment:: Hard of hearing; no asterixis Assessment and Plan *Assessment and plan (1) Cirrhosis: Status: Acute Qualifiers: Ascites presence: with ascites Hepatic cirrhosis type: unspecified hepatic cirrhosis Qualified Code(s): K74.60 - Unspecified cirrhosis of liver; R18.8 - Other ascites Category: Medical Code(s): K74.60 - Unspecified cirrhosis of liver (2) Ascites: Status: Acute Qualifiers: Ascites type: other type Qualified Code(s): R18.8 - Other ascites Category: Medical Code(s): R18.8 - Other ascites (3) Esophageal varices: Status: Acute Qualifiers: Esophageal varices bleeding: without bleeding Esophageal varices type: unspecified type Qualified Code(s): I85.00 - Esophageal varices without bleeding Category: Medical Code(s): I85.00 - Esophageal varices without bleeding (4) COVID-19: Status: Acute Category: Medical Code(s): U07.1 - COVID-19 Plan 87-year-old male with PMHx of prostate cancer status postsurgical intervention, OA and largely healthy otherwise who presents emergency department from clinic for evaluation of abdominal pain. He also has had intermittent severe left upper quadrant left lower quadrant abdominal pain causing him to present here for continued evaluation. Per patient, he is been feeling abdominal distention at least from about the last six months. He blamed on been hypoactive and thought it was getting obese, my pants are no longer fit me .. On arrival patient had a CT of his abdomen conclusis for cirrhotic changes of the liver portal hypertention pre and post hepatic, esophageal varices. and moderate volume ascites, thickening of several loops of proximal small bowel and ascending colon likely relative to portal hypertensive Enterocolopathy with several mildly dilated loops of small bowel containing air-fluid levels without evidence of obstruction.Patient denied history of alcoholism or any other drugs, denied history of hepatitis. LAbs are grossly unremarkable. mild anemia. Given patient symptoms, spontaneous bacterial peritonitis is on the differential for which patient underwent diagnostic paracentesis. White cell count of 390, 10% polymorphonuclear cells which would mean approximately 40 PMNs. Culture pending. Continuing empiric antibiotics. Therapeutic large-volume paracentesis performed today. Continues to require inpatient management. Problems addressed as follows: Cirrhosis, new diagnosis Moderate ascites Portal hypertension Presence of varices -No history of alcoholism. Hepatitis panel pending. Will refer to GI as an outpatient when stable for discharge. -Continuing ceftriaxone 2 g daily until cultures negative at 48 hours. As stated above, polymorphonuclear count approximately 40. This is below the threshold of 250 as would be expected for SBP. -Initiate spironolactone/Lasix in a 100/40 mg ratio daily for fluid/ascites management -Continue pantoprazole in the setting of varices -MELD score of 8, child Puckett class B. INR 1.1. Cirrhosis appears compensated. Platelets 167. -Hepatitis panel pending -Large-volume paracentesis performed today with removal of 3-1/2 L. Improvement in abdominal pain and distention. -CBC, CMP, magnesium ordered for the morning. 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 Continue monitor -COVID-19 positive: Asymptomatic Holding anticoagulation. Continue with Protonix. DNR Low-sodium diet
--- NOTE | 2023-12-05 16:19 | P.EN_ITS ---
Pre-procedure Diagnosis:: Cirrhosis with ascites, SBP Procedure:: Paracentesis Consent obtained. Patient counseled on risks including bleeding, infection, pain, perforation of bowel. Counseled on benefits including reduction in pain, reduction of distention, treatment of his decreased appetite and further workup of etiology of ascites. Patient states understanding and agreed/consented to proceed with procedure. Providers wore sterile gloves, mask, bouffant caps. Pocket of fluid identified with ultrasound at bedside. Right lower quadrant 2 inches medial to ASIS was accessed using usual sterile fashion. Skin sanitized with chlorhexidine. Sterile drape placed over abdomen. 10 cc of 1% lidocaine used to numb track for safety centesis needle/catheter. Abdomen accessed with safety centesis needle/catheter using negative pressure until flash obtained of yellow ascites fluid. Catheter advanced and needle removed. Pigtail catheter a ttached via three-way valve to extension and subsequently vacuum bottles. 3-1/2 L of clear straw-colored fluid removed from abdomen. Patient began feeling better with decreased abdominal distention and improvement in pain after removal of just 1 L. Blood pressure monitored regularly through procedure with normotension maintained. Catheter removed without complication or bleeding. Hemostasis achieved with direct pressure. Sterile bandage placed at site of access. Is only 3-1/2 L were removed, no albumin was administered. Complications?: None Estimated blood loss (mL): 0cc Tolerated procedure well?: Yes Post-op Diagnosis:: Same
--- NOTE | 2023-12-05 16:54 | PC.NURSE ---
Pt alert and oriented. VSS. On room air. Denies pain. Paracentesis performed at bedside with 3600 ml removed. Patient tolerated well. Appetite increased after. Up to bedside with one for voids via urinal. Abdomen soft and nontender after intervention
[2023-12-05] MEDS: CEFTRIAXONE SODIUM 2 GM in 0.9 % SODIUM CHLORIDE 100 ML IV (19:56)
[2023-12-05 19:58] LABS: Chloride 109 mmol/L (98-107); Potassium 4.2 mmoL/L (3.5-5.1); Sodium 136 mmol/L (136-145)
[2023-12-05 20:01] LABS: Anion Gap 6.2 mEq/L (5-15); Blood Urea Nitrogen 22 mg/dl (9-20); Calcium 7.9 mg/dl (8.4-10.2); Carbon Dioxide 25 mmol/L (22.0-30.0); Creatinine Clearance Estimated 60 mL/min (50-200); Estimated Glomerular Filt Rate 80 ml/min (>60); GFR (African American) 96 ML/MIN (>60); Glucose 116 mg/dl (74-100)
[2023-12-06] VITALS: BP 145/79; PULSE 86; RESP 16; TEMP 36.9; O2SAT 95
[2023-12-06 04:00] VITALS: BP 113/68; PULSE 75; RESP 18; TEMP 36.4; O2SAT 96; BMI 17.6
--- NOTE | 2023-12-06 04:04 | PC.NURSE ---
no acute changes t/o shift. denies abd pain. pt rest well t/o night.
[2023-12-06 06:38] LABS: Basophils % 0.2 % (0.1-2.0); Eosinophils # 0.2 K/mm3 (0.0-0.4); Hematocrit 37.2 % (42.0-52.0); Hemoglobin 12.3 g/dL (14.1-18.0); Lymphocytes # 1.3 K/mm3 (0.7-4.5); Lymphocytes % 18.8 % (10-50); Mean Corpuscular Hemoglobin 34.3 pg (27.0-31.2); Monocytes # 0.4 K/mm3 (0.1-1.0); Monocytes % 6.2 % (1.7-9.3); Neutrophils # 4.7 K/mm3 (1.8-7.8); Neutrophils % 71.7 % (37.0-80.0); Platelet Count 173 K/mm3 (142-424); Red Blood Count 3.58 M/mm3 (4.60-6.20); Red Cell Distribution Width 14.5 % (11.5-17.5); White Blood Count 6.6 K/mm3 (4.8-10.8)
[2023-12-06 06:42] LABS: HBsAg Screen Negative (Negative); HCV Ab Non Reactive (Non Reactive); Hep A Ab, IGM Negative (Negative); Hep B Core Ab, IgM Negative (Negative)
[2023-12-06 06:48] LABS: Chloride 111 mmol/L (98-107); Potassium 3.9 mmoL/L (3.5-5.1); Sodium 136 mmol/L (136-145)
[2023-12-06 06:51] LABS: Alanine Aminotransferase 43 U/L (12-78); Albumin Level 2.4 g/dl (3.5-5.0); Albumin/Globulin Ratio 0.8 (1.1-1.8); Alkaline Phosphatase 135 U/L (38-126); Anion Gap 5.9 mEq/L (5-15); Aspartate Amino Transferase 60 U/L (17-59); Bilirubin,Total 0.9 mg/dl (0.2-1.3); Blood Urea Nitrogen 22 mg/dl (9-20); Calcium 7.6 mg/dl (8.4-10.2); Carbon Dioxide 23 mmol/L (22.0-30.0); Creatinine Clearance Estimated 39 mL/min (50-200); Estimated Glomerular Filt Rate 80 ml/min (>60); GFR (African American) 96 ML/MIN (>60); Glucose 92 mg/dl (74-100); Total Protein,Serum 5.4 g/dl (6.3-8.2)
[2023-12-06 06:52] LABS: Magnesium 2.1 mg/dl (1.6-2.3)
[2023-12-06 07:55] VITALS: BP 89/72; PULSE 103; RESP 18; TEMP 36.6; O2SAT 97
[2023-12-06] MEDS: PANTOPRAZOLE 40MG TABLET 40 MG PO (08:13)
[2023-12-06] MEDS: SPIRONOLACTONE 25MG TABLET 100 MG PO (08:13)
[2023-12-06] MEDS: FUROSEMIDE 40 MG TABLET PO (08:13)
[2023-12-06 09:14] LABS: HCV Ab Non Reactive (Non Reactive); Hep Be Ag Negative (Negative)
--- NOTE | 2023-12-06 11:02 | HMH.OTEV ---
OT Inpatient Evaluation Rehab OT IP Evaluation Start: 12/06/23 10:42 Freq: ONCE Status: Active Protocol: Document 12/06/23 10:56 [facility] (Rec: 12/06/23 11:02 [facility] [id number]) Rehab OT IP Assessment Subjective History Pt oriented x 3 on arrival. Pt agreeable to engage in therapy evaluation. Pt's nephew present and supportive. Pt was admitted on 12/04/23 due to SPB. History and Physical report: This is a 87-year-old male with PMHx of prostate cancer status postsurgical intervention, OA and largely healthy otherwise who presents emergency department from clinic for evaluation of abdominal pain. History is obtained by patient and daughter at bedside. Over the last week patient has had upper respiratory symptoms including cough and rhinorrhea which are improving, denies chest pain. He also has had intermittent severe left upper quadrant left lower quadrant abdominal pain causing him to present here for continued evaluation. Per patient, he is been feeling abdominal distention at least from about the last six months. He blamed on been hypoactive and thought it was getting obese, my pants are no longer fit me . Last bowel movement prior to arrival, streaky blood with wiping however no overt melena or hematochezia is reported. Patient is pending outpatient echocardiography for bilateral lower extremity swelling. No other acute complaints at this time. Admitted for management and treatment. Subjective I can do what I need to. Pt reports prior to being in the hospital, pt lived at home alone. Pt claims normally he is independent with all ADLs and IADLS. Pt does not require any type of AE during functional transfers. He also still drives. Objective Patient Orientation Person,Place,Birthday Right Upper Extremity Gross ROM WFL Left Upper Extremity Gross ROM WFL Bed Mobility bed mobility-scooting,bed mobility - supine/sit Assist Level Supervision/Stand by Transfer Training Sit/Stand Transfer Assist Level Supervision/Stand by Lower Body Dressing Ability Standby Assistance Performing Toilet Hygiene Ability Standby Assistance Overall Commode/Toilet Transfer Ability Standby Assistance Commode/Toilet Transfer Technique Sit to/from Ambulatory Rehab OT IP prob,goals,plan Problems Date of Evaluation: 12/06/23 Rehab Potential Rehab Potential Innapropriate for Skilled Therapy Discharge Plan OT Discharge Plan Pt appears to be at his baseline with functional transfers and ADL independence . Pt can return home once medically stable per physician . Eval Complexity Eval Charge Codes 39660 - Low Complexity PHYSICIAN CERTIFICATION: I certify the specified therapy services for Pawel Franco are required, authorized, and reviewed every 30 days.
--- NOTE | 2023-12-06 11:45 | EXP.DC.SUM ---
General Admission date:: 12/04/23 Discharge date: 12/06/23 HPI HPI HPI: This is a 87-year-old male with PMHx of prostate cancer status postsurgical intervention, OA and largely healthy otherwise who presents emergency department from clinic for evaluation of abdominal pain. History is obtained by patient and daughter at bedside. Over the last week patient has had upper respiratory symptoms including cough and rhinorrhea which are improving, denies chest pain. He also has had intermittent severe left upper quadrant left lower quadrant abdominal pain causing him to present here for continued evaluation. Per patient, he is been feeling abdominal distention at least from about the last six months. He blamed on been hypoactive and thought it was getting obese, my pants are no longer fit me . Last bowel movement prior to arrival, streaky blood with wiping however no overt melena or hematochezia is reported. Patient is pending outpatient echocardiography for bilateral lower extremity swelling. No other acute complaints at this time. Admitted for management and treatment. Hospital Course Hospital Course Hospital Course: 87-year-old male with PMHx of prostate cancer status postsurgical intervention, OA and largely healthy otherwise who presents emergency department from clinic for evaluation of abdominal pain. He also has had intermittent severe left upper quadrant left lower quadrant abdominal pain causing him to present here for continued evaluation. Per patient, he is been feeling abdominal distention at least from about the last six months. He blamed on been hypoactive and thought it was getting obese, my pants are no longer fit me .. On arrival patient had a CT of his abdomen conclusis for cirrhotic changes of the liver portal hypertention pre and post hepatic, esophageal varices. and moderate volume ascites, thickening of several loops of proximal small bowel and ascending colon likely relative to portal hypertensive Enterocolopathy with several mildly dilated loops of small bowel containing air-fluid levels without evidence of obstruction.Patient denied history of alcoholism or any other drugs, denied history of hepatitis. LAbs are grossly unremarkable. mild anemia. Given patient symptoms, spontaneous bacterial peritonitis is on the differential for which patient underwent diagnostic paracentesis. White cell count of 390, 10% polymorphonuclear cells which would mean approximately 40 PMNs. Culture pending. Continuing empiric antibiotics. Therapeutic large-volume paracentesis performed today. Continues to require inpatient management. Problems addressed as follows: Cirrhosis, new diagnosis - s/p paracentesis 3.6 L out, GI f/u, dc on oral Augmentin Moderate ascites Portal hypertension Presence of varices -No history of alcoholism. Hepatitis panel negative. Will refer to GI as an outpatient when stable for discharge. 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 Continue monitor -COVID-19 positive: Asymptomatic Continue with Protonix. DNR Low-sodium diet Exam Data for Last 24 hours Vital signs and Labs for Last 24 Hours: Temp Pulse Resp BP Pulse Ox O2 Del Method 98 F 103 H 18 89/72 L 97 Room Air 12/06/23 07:55 12/06/23 07:55 12/06/23 07:55 12/06/23 07:55 12/06/23 07:55 12/06/23 11:00 Laboratory Results - last 24 hr 12/05/23 06:30: Hepatitis Be Antigen Negative, Hepatitis C Antibody Non reactive 12/05/23 11:05: Hepatitis A IgM Ab Negative, Hep Bs Antigen Negative, Hep B Core IgM Ab Negative, Hepatitis C Antibody Non reactive 12/05/23 19:34: Sodium 136, Potassium 4.2, Chloride 109 H, Carbon Dioxide 25, Anion Gap 6.2, BUN 22 H, Creatinine 0.90, Estimated Creat Clear 60, Estimated GFR 80, Est GFR ( Amer) 96, Glucose 116 H D, Calcium 7.9 L 12/06/23 05:53: WBC 6.6, RBC 3.58 L, Hgb 12.3 L, Hct 37.2 L, MCV 104.0 H, MCH 34.3 H, MCHC 33.0, RDW 14.5, Plt Count 173, MPV 9.0, Neut % (Auto) 71.7, Lymph % (Auto) 18.8, Schleicher % (Auto) 6.2, Eos % (Auto) 3.0, Baso % (Auto) 0.2, Neut # (Auto) 4.7, Lymph # (Auto) 1.3, Schleicher # (Auto) 0.4, Eos # (Auto) 0.2, Baso # (Auto) 0.0, Sodium 136, Potassium 3.9, Chloride 111 H, Carbon Dioxide 23, Anion Gap 5.9, BUN 22 H, Creatinine 0.90, Estimated Creat Clear 39, Estimated GFR 80, Est GFR ( Amer) 96, Glucose 92 D, Calcium 7.6 L, Magnesium 2.1, Total Bilirubin 0.9, AST 60 H, ALT 43, Alkaline Phosphatase 135 H, Total Protein 5.4 L, Albumin 2.4 L D, Globulin 3.0, Albumin/Globulin Ratio 0.8 L I & O for Last 24 hours: Intake & Output 12/03/23 12/04/23 12/05/23 12/06/23 23:59 23:59 23:59 23:59 Intake Total 1216 / 1216 420 / 420 Output Total 750 / 750 0 / 0 Balance 466 / 466 420 / 420 Weight 83.325 kg 83.325 kg 54.023 kg Constitutional Constitutional: no acute distress *Routine HEENT Exam Head: Present normocephalic Eye: Present EOMI and PERRL ENT: Present mucous membranes moist *Routine Neck Exam Neck: Present supple; Absent lymphadenopathy *Routine Respiratory Exam Respiratory: Present CTA bilaterally *Routine Cardiovascular Exam Cardiovascular: Present RRR *Routine Abdominal Exam Abdominal: Present soft, normoactive bowel sounds and distended *Routine Extremities Exam Extremities: Absent cyanosis, clubbing or edema *Routine Skin Exam Skin: Present warm; Absent rash *Routine Neurological Exam Neurological: Present alert and oriented X3 Results Data Completed and Pending Labs on day of discharge: Labs from last 24 hours 12/06/23 12/05/23 12/05/23 05:53 19:34 11:05 WBC 6.6 RBC 3.58 L Hgb 12.3 L Hct 37.2 L MCV 104.0 H MCH 34.3 H MCHC 33.0 RDW 14.5 Plt Count 173 MPV 9.0 Neut % (Auto) 71.7 Lymph % (Auto) 18.8 Schleicher % (Auto) 6.2 Eos % (Auto) 3.0 Baso % (Auto) 0.2 Neut # (Auto) 4.7 Lymph # (Auto) 1.3 Schleicher # (Auto) 0.4 Eos # (Auto) 0.2 Baso # (Auto) 0.0 Sodium 136 136 Potassium 3.9 4.2 Chloride 111 H 109 H Carbon Dioxide 23 25 Anion Gap 5.9 6.2 BUN 22 H 22 H Creatinine 0.90 0.90 Estimated Creat Clear 39 60 Estimated GFR 80 80 Est GFR ( Amer) 96 96 Glucose 92 D 116 H D Calcium 7.6 L 7.9 L Magnesium 2.1 Total Bilirubin 0.9 AST 60 H ALT 43 Alkaline Phosphatase 135 H Total Protein 5.4 L Albumin 2.4 L D Globulin 3.0 Albumin/Globulin Ratio 0.8 L Hepatitis A IgM Ab Negative Hep Bs Antigen Negative Hep B Core IgM Ab Negative Hepatitis Be Antigen Hepatitis C Antibody Non reactive 12/05/23 06:30 WBC RBC Hgb Hct MCV MCH MCHC RDW Plt Count MPV Neut % (Auto) Lymph % (Auto) Schleicher % (Auto) Eos % (Auto) Baso % (Auto) Neut # (Auto) Lymph # (Auto) Schleicher # (Auto) Eos # (Auto) Baso # (Auto) Sodium Potassium Chloride Carbon Dioxide Anion Gap BUN Creatinine Estimated Creat Clear Estimated GFR Est GFR ( Amer) Glucose Calcium Magnesium Total Bilirubin AST ALT Alkaline Phosphatase Total Protein Albumin Globulin Albumin/Globulin Ratio Hepatitis A IgM Ab Hep Bs Antigen Hep B Core IgM Ab Hepatitis Be Antigen Negative Hepatitis C Antibody Non reactive DS: Diagnosis Discharge Diagnosis (1) Cirrhosis: Status: Acute Code(s): K74.60 - Unspecified cirrhosis of liver Qualifiers: Ascites presence: with ascites Hepatic cirrhosis type: unspecified hepatic cirrhosis Qualified Code(s): K74.60 - Unspecified cirrhosis of liver; R18.8 - Other ascites (2) Ascites: Status: Acute Code(s): R18.8 - Other ascites Qualifiers: Ascites type: other type Qualified Code(s): R18.8 - Other ascites (3) Esophageal varices: Status: Acute Code(s): I85.00 - Esophageal varices without bleeding Qualifiers: Esophageal varices bleeding: without bleeding Esophageal varices type: unspecified type Qualified Code(s): I85.00 - Esophageal varices without bleeding (4) COVID-19: Status: Acute Code(s): U07.1 - COVID-19 Meds Home Medications and Allergies Home Medications Medication Instructions Recorded Confirmed Type aspirin 325 mg tablet 325 mg PO DAILY PRN Pain (Scale 12/04/23 12/04/23 History Score 1-3) diclofenac sodium 75 mg 75 mg PO BID PRN arthritis pain 12/04/23 12/04/23 History tablet,delayed release famotidine 20 mg tablet 20 mg PO DAILY PRN indegestion 12/04/23 12/04/23 History amoxicillin 500 mg-potassium 1 tab PO Q12H 10 days #20 tabs 12/06/23 Rx clavulanate 125 mg tablet (Augmentin) furosemide 40 mg tablet 40 mg PO DAILY 30 days #30 tabs 12/06/23 Rx pantoprazole 40 mg tablet,delayed 40 mg PO DAILY 30 days #30 tabs 12/06/23 Rx release spironolactone 25 mg tablet 100 mg PO DAILY 30 days #120 tabs 12/06/23 Rx New Prescriptions to Start Prescriptions: amoxicillin-pot clavulanate [Augmentin] [facility]Irfan [facility] spironolactone Terrence,Irfan Allergies Allergy/AdvReac Type Severity Reaction Status Date / Time No Known Drug Allergies Allergy Unknown Verified 09/28/21 11:02 [NO KNOWN DRUG ALLERGIES] Discharge Plan Disposition Patient Disposition: Home, Self-Care Discharge Order Discharge Orders: Discharge Order (Routine); Ordered 12/06/23 Ordered By: Sis Ocampo Follow up Plan Follow up with: Aldo Delvalle MD [Primary Care Provider] - 12/11/23 10:45 am Prescriptions/Medication Reconciliation: New furosemide 40 mg Tablet 40 mg PO DAILY 30 Days Qty: 30 0RF spironolactone 25 mg Tablet 100 mg PO DAILY 30 Days Qty: 120 0RF pantoprazole 40 mg Tablet,Delayed Release (Dr/Ec) 40 mg PO DAILY 30 Days Qty: 30 0RF amoxicillin-pot clavulanate [Augmentin] 500-125 mg tablet 1 tab PO Q12H 10 Days Qty: 20 0RF Continued aspirin 325 mg Tablet 325 mg PO DAILY PRN (Reason: Pain (Scale Score 1-3)) famotidine 20 mg tablet 20 mg PO DAILY PRN (Reason: indegestion) diclofenac sodium 75 mg tablet,delayed release (DR/EC) 75 mg PO BID PRN (Reason: arthritis pain) Problem Reconciliation Problems Reviewed?: Yes Patient Discharge Instructions ACTIVITY: Ambulate as tolerated DIET: low salt diet Patient Instructions: DI for Peritonitis, DI for Abdominal Paracentesis, DI for Cirrhosis, DI for Surgical Site Infection, DI for COVID-19 (Suspected or Confirmed ) Providers Primary Care Provider: Aldo Delvalle Admit Provider: Gilbert Dash Attending Provider: Gilbert Dash
--- NOTE | 2023-12-06 12:41 | HMH.PTEV ---
Physical Therapy Evaluation Rehab PT IP Evaluation Start: 12/06/23 10:42 Freq: ONCE Status: Active Protocol: Document 12/06/23 12:38 CHANDNI (Rec: 12/06/23 12:41 CHANDNI [email or web address]) Subjective/History History History H&P: This is a 87-year-old male with PMHx of prostate cancer status postsurgical intervention, OA and largely healthy otherwise who presents emergency department from clinic for evaluation of abdominal pain. History is obtained by patient and daughter at bedside. Over the last week patient has had upper respiratory symptoms including cough and rhinorrhea which are improving, denies chest pain. He also has had intermittent severe left upper quadrant left lower quadrant abdominal pain causing him to present here for continued evaluation. Per patient, he is been feeling abdominal distention at least from about the last six months. He blamed on been hypoactive and thought it was getting obese, my pants are no longer fit me . Last bowel movement prior to arrival, streaky blood with wiping however no overt melena or hematochezia is reported. Patient is pending outpatient echocardiography for bilateral lower extremity swelling. No other acute complaints at this time. Admitted for management and treatment. Subjective Subjective PLOF: No AD IND with mobility and stairs. 5 [address] 2 story home (handrails). Lives alone. New diagnosis of cancer in past 12 No months? Rehab PT IP Eval Objective Appearance Patient Behavior Appropriate,Cooperative Patient Orientation Person,Place,Situation Difficulty following instructions none Speech Pattern Clear Ambulation Patient Able to Ambulate Yes Ambulation Observation IP General Gait Pattern Observation No Deviations/Normal Ambulation Distance (feet) 15 Ambulation Assistive Device None Ambulation Ability Independent Transfers Bed Transfer Ability Independent Sit to Stand Bed Transfer Ability Independent Rehab PT IP prob,goals,plan Problems Date of Evaluation: 12/06/23 Rehab Potential Rehab Potential Innapropriate for Skilled Therapy Discharge Plan PT Discharge Plan Pt okay to d/c home when deemed medically necessary. Pt ambulated in room with independence and no AD. Skilled PT not needed at this time d/t current level of functioning. Eval Complexity Eval Charge Codes 93180 - Moderate Complexity PHYSICIAN CERTIFICATION: I certify the specified therapy services for Pawel Mohan Franco are required, authorized, and reviewed every 30 days.
--- NOTE | 2023-12-07 14:46 | CARE MANAGER ---
CM called and spoke with patient regarding recent discharge. Patient aware of scheduled f/u appt, but is waiting to scheduled GI appt until he discusses with Dr. Delvalle. Has started new medication. No concerns voiced at time of call.
[2023-12-08 11:13] LABS: Albumin, Body Fluid 0.9 g/dL (Not Estab.); LD, Body Fluid 67 IU/L (.)
== END 2023-12-06 13:00 | disposition home or self-care (01) ==
LOC: ER 20:14 → 2ND 20:22
PROVIDERS: Nurse Practitioner Family; Admitting Provider Internal Medicine Adolescent Medicine; Emergency Provider Emergency Medicine; PCP Internal Medicine Adolescent Medicine; Visit Provider Internal Medicine Adolescent Medicine
DX: K65.2 Spontaneous bacterial peritonitis (principal); Z79.899 Other long term (current) drug therapy; K76.6 Portal hypertension; I85.10 Secondary esophageal varices without bleeding; U07.1 COVID-19; K74.60 Unspecified cirrhosis of liver; R18.8 Other ascites; R07.9 Chest pain, unspecified; Z85.46 Personal history of malignant neoplasm of prostate; R60.0 Localized edema
CPT/HCPCS: 36415; 49083; 74177; 76705; 80048; 80053; 80074; 81001; 82042; 83605; 83615; 83690; 83735; 83880; 84484; 85025; 85610; 87070; 87205; 87350; 87636; 89051; 93005; 93306; 97162; 97165; 99285; G0378; J0131; J0696; Q9967

== ENCOUNTER 2023-12-28 14:41 | Outpatient (CLI) | payer MEDICARE, SELFPAY ==
[2023-12-28 15:39] LABS: Basophils % 0.6 % (0.1-2.0); Eosinophils # 0.3 K/mm3 (0.0-0.4); Eosinophils % 4.4 % (0.1-12.0); Hematocrit 39.9 % (42.0-52.0); Hemoglobin 12.8 g/dL (14.1-18.0); Lymphocytes % 28.6 % (10-50); Mean Corpuscular Hemoglobin 34.7 pg (27.0-31.2); Mean Corpuscular Volume 108.4 fl (80-94); Mean Platelet Volume 8.6 fl (7.4-10.4); Monocytes # 0.7 K/mm3 (0.1-1.0); Monocytes % 9.7 % (1.7-9.3); Neutrophils # 3.9 K/mm3 (1.8-7.8); Neutrophils % 56.7 % (37.0-80.0); Platelet Count 154 K/mm3 (142-424); Red Blood Count 3.68 M/mm3 (4.60-6.20); Red Cell Distribution Width 14.7 % (11.5-17.5); White Blood Count 6.9 K/mm3 (4.8-10.8)
[2023-12-28 16:07] LABS: Alanine Aminotransferase 61 U/L (12-78); Albumin Level 3.2 g/dl (3.5-5.0); Alkaline Phosphatase 159 U/L (38-126); Anion Gap 10.9 mEq/L (5-15); Aspartate Amino Transferase 67 U/L (17-59); Bilirubin,Total 0.8 mg/dl (0.2-1.3); Blood Urea Nitrogen 27 mg/dl (9-20); Calcium 8.7 mg/dl (8.4-10.2); Carbon Dioxide 21 mmol/L (22.0-30.0); Chloride 109 mmol/L (98-107); Estimated Glomerular Filt Rate 63 ml/min (>60); GFR (African American) 76 ML/MIN (>60); Globulin 3.1 g/dL (1.3-3.2); Glucose 121 mg/dl (74-100); Potassium 4.9 mmoL/L (3.5-5.1); Sodium 136 mmol/L (136-145); Total Protein,Serum 6.3 g/dl (6.3-8.2)
== END 2023-12-28 23:59 ==
LOC: LAB 14:42
PROVIDERS: PCP Nurse Practitioner Family; Visit Provider Nurse Practitioner Family
DX: K74.60 Unspecified cirrhosis of liver (principal)
CPT/HCPCS: 36415; 80053; 85025